=== PATIENT | female | born 1965 | race Caucasian/White ===

== ENCOUNTER 2016-10-11 10:19 | Emergency (ER) | payer OTHER ==
--- NOTE | 2016-10-11 15:22 | DIAGNOSTIC IMAGING REPORT ---
PROCEDURE: CT ABDOMEN/PELVIS W/O CONTRAST INDICATION: Left abdominal and flank pain. Vomiting. History of kidney stones and hysterectomy. TECHNIQUE: Noncontrast axial images with sagittal and coronal reformations. COMPARISON: Compared CT abdomen and pelvis on 11/24/2014. FINDINGS: ABDOMEN: Kidneys and ureters are normal. No evidence of urinary tract obstruction or calculus. Mild generalized fatty infiltration of the liver. Gallbladder, spleen, pancreas, and aorta are normal. Abdominal bowel pattern is normal. Appendix is not identified, no evidence of inflammatory process. Mild to moderate degenerate changes of the lumbar spine. There is a stable 8 mm nodule at the right medial lung base most compatible with old granuloma. PELVIS: Mild inflammatory changes in the upper sigmoid colon superimposed on moderate diverticulosis. Uterus and adnexal structures are normal. No evidence of free fluid. IMPRESSION: 1. Normal kidneys and ureters. No evidence of urinary tract calculus or obstruction. 2. Moderate fatty infiltration of the liver. 3. Mild inflammatory change of the upper sigmoid colon mesentery superimposed on moderate diverticulosis. Findings are compatible with diverticulitis. 4. There is an 8 mm lung nodule at the right medial lung base most compatible with old granuloma (stable since prior CT on 11/24/2014). 5. Findings discussed with Dr. Jasbir Robert. CT abdomen and pelvis. All CT scans at this facility use dose modulation, iterative reconstruction, and/or weight-based dosing when appropriate to reduce radiation dose to as low as reasonably achievable.
--- NOTE | 2016-10-11 16:39 | ED ORDER SUMMARY ---
..... Patient: SAUNDRA MOE OrderSheet [facility] VisitID: [id number] [place] [address] 51y, F Registration Date/Time: 10/11/2016 ORDER SHEET Weight: 76.2 kg (stated) Allergies: Codeine, Trazodone GENERAL ORDERS: UA-Culture if indicated Urgent (10:36 10/11/2016 JBoardley R.N. per protocol) (Ack 10:40 KHoerner) (10:40 KHoerner) CBC w Diff Urgent (10:46 10/11/2016 JBoardley R.N. per protocol) (10:49 KHoerner) CMP Urgent (10:46 10/11/2016 JBoardley R.N. per protocol) (10:49 KHoerner) Amylase Urgent (10:46 10/11/2016 JBoardley R.N. per protocol) (10:49 KHoerner) Lipase Urgent (10:46 10/11/2016 JBoardley R.N. per protocol) (10:49 KHoerner) CT Abd/Pel wo Cont (Left) Urgent (13:52 10/11/2016 Fidel Garcia) (Ack 13:57 KHoerner) (14:38 JBoardley R.N.) MEDICATION ORDERS: Flagyl PO 500 mg (NOW) (16:09 10/11/2016 Fidel Garcia) (Ack 16:13 JBoardley R.N.) (16:15 JBoardley R.N.) IV FLUIDS: Zofran IV 4 mg (NOW) (10:46 10/11/2016 JBoardley R.N. per protocol) (10:47 JBoardley R.N.) IV NS : initial bolus none -, then 1000 mL/hr for X1 (NOW); Routine (10:46 10/11/2016 JBoardley R.N. per protocol) (10:47 JBoardley R.N.) Zofran IV 4 mg (NOW) (13:13 10/11/2016 JBoardley R.N. per protocol) (13:14 JBoardley R.N.) Toradol IV 30 mg (NOW) (13:52 10/11/2016 Fidel Garcia) (Ack 13:53 Leon R.N.) (13:55 Leon R.N.) Levofloxacin IV 500 mg/100mL (NOW) (16:09 10/11/2016 Fidel Garcia) (Ack 16:13 Deodlebruce R.N.) (16:16 JBoardley R.N.) ORDER SHEET NOTES: [Electronically signed by Hal Lutz R.N. (18:27 10/11/2016)] [Electronically signed by Jasbir Robert Dr. (22:17 10/11/2016)] [Electronically locked/signed by Hal Lutz R.N. (18:27 10/11/2016)]
--- NOTE | 2016-10-11 16:39 | ED ORDER SUMMARY ---
..... Patient: SAUNDRA MOE OrderSheet [facility] VisitID: [id number] [place] [address] 51y, F Registration Date/Time: 10/11/2016 ORDER SHEET Weight: 76.2 kg (stated) Allergies: Codeine, Trazodone GENERAL ORDERS: UA-Culture if indicated Urgent (10:36 10/11/2016 JBoardley R.N. per protocol) (Ack 10:40 KHoerner) (10:40 KHoerner) CBC w Diff Urgent (10:46 10/11/2016 JBoardley R.N. per protocol) (10:49 KHoerner) CMP Urgent (10:46 10/11/2016 JBoardley R.N. per protocol) (10:49 KHoerner) Amylase Urgent (10:46 10/11/2016 JBoardley R.N. per protocol) (10:49 KHoerner) Lipase Urgent (10:46 10/11/2016 JBoardley R.N. per protocol) (10:49 KHoerner) CT Abd/Pel wo Cont (Left) Urgent (13:52 10/11/2016 Fidel Garcia) (Ack 13:57 KHoerner) (14:38 JBoardley R.N.) MEDICATION ORDERS: Flagyl PO 500 mg (NOW) (16:09 10/11/2016 Fidel Garcia) (Ack 16:13 JBoardley R.N.) (16:15 JBoardley R.N.) IV FLUIDS: Zofran IV 4 mg (NOW) (10:46 10/11/2016 JBoardley R.N. per protocol) (10:47 JBoardley R.N.) IV NS : initial bolus none -, then 1000 mL/hr for X1 (NOW); Routine (10:46 10/11/2016 JBoardley R.N. per protocol) (10:47 JBoardley R.N.) Zofran IV 4 mg (NOW) (13:13 10/11/2016 JBoardley R.N. per protocol) (13:14 JBoardley R.N.) Toradol IV 30 mg (NOW) (13:52 10/11/2016 Fidel Garcia) (Ack 13:53 Leon R.N.) (13:55 Leon R.N.) Levofloxacin IV 500 mg/100mL (NOW) (16:09 10/11/2016 Fidel Garcia) (Ack 16:13 Deodlebruce R.N.) (16:16 JBoardley R.N.) ORDER SHEET NOTES: [Electronically signed by Hal Lutz R.N. (18:27 10/11/2016)] [Electronically signed by Jasbir Robert Dr. (22:17 10/11/2016)] [Electronically locked/signed by Hal Lutz R.N. (18:27 10/11/2016)]
--- NOTE | 2016-10-11 16:39 | ED NURSING NOTES ---
Clinical Report - Nurses [facility] [address] [place] [address] 10/11/2016 10:21 Patient: SAUNDRA MOE TRIAGE Triage time 10:31. Acuity: LEVEL 3. Chief Complaint: ABDOMINAL PAIN, NAUSEA and VOMITING. 10:10/11/16. 10:10/11/16. Alert. SEPSIS SCREEN: Sepsis Screen. Negative (no infection suspected/documented). --10:36 Hal Lutz R.N. 10:10/11/16. BP: 135/70. HR: 88. RR: 17. O2 saturation: 99% on room air. Temp: 97.5 F (oral). Pain level now: 810. --10:36 Hal Lutz R.N. Weight: 76.2 kg stated. Height/Length: 62 inches Per Patient. BMI: 30.8. --10:32 Hal Lutz R.N. Medications ASA 81 mg, daily. Gemfibrozil Oral 600 mg, 2x a day. Lisinopril Oral 5 mg, daily. Metformin HCl Oral 100mg, 2x a day. --10:33 Hal Lutz R.N. Medication/allergy information source: the patient. --10:36 Hal Lutz R.N. Allergies Codeine. Trazodone . --10:33 Hal Lutz R.N. History Arrived by private vehicle. Historian: patient. Accompanied by friend. Primary physician (KALEE ARREDONDO). 10:31 10/11/16. ( 2 weeks ago). She has had nausea, vomiting and diarrhea. 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 PAST MEDICAL HX: Immunizations: up-to-date. The patient has had a hysterectomy. SOCIAL HX: Current every day light tobacco smoker (cigarette)- less than 1/2 a pack per day. Occasional alcohol use. No drug use. No recent travel. No infectious disease exposure. No known contact with a sick individual. ABUSE ASSESSMENT: No report of abuse. FALL RISK ASSESSMENT: Fall risk assessment completed. No fall risk identified. NUTRITIONAL RISK ASSESSMENT: The nutritional risk assessment revealed no deficiencies. FUNCTIONAL ASSESSMENT: Functional assessment: no impairments noted. LEARNING NEEDS ASSESSMENT: The learning needs assessment revealed no barriers. SKIN INTEGRITY ASSESSMENT: Skin integrity risk assessment completed. No skin integrity risk identified. --10:36 Hal Lutz R.N. PROBLEMS: Fatty Liver. Sleep Apnea. Hypertension. Diabetes Mellitus. --10:33 Hal Lutz R.N. Ovarian Cyst [RuleOut]. Nephrolithiasis [RuleOut]. --10:33 Hal Lutz R.N. ADDITIONAL SURGERIES: Hysterectomy. Tubal Ligation. --10:33 Hal Lutz R.N. Assessment 10:10/11/16. --10:36 Hal Lutz R.N. Interventions 10:10/11/16. 10:10/11/16. ID and allergy band on patient. To treatment room. --10:36 Hal Lutz R.N. PHYSICAL ASSESSMENT 10:10/11/16. Ambulatory to room. GENERAL / NEURO / PSYCH: Alert. Oriented X 4. Appears in pain. RESPIRATORY: Respirations not labored. CVS: Capillary refill less than 2 seconds. SKIN: Skin is warm and dry. --10:34 Hal Lutz R.N. NURSING PROGRESS NOTES 10:34 10/11/16. The plan of care for this patient has been created. Patient gowned. Head of bed elevated. Reassurance given. Two patient identifiers checked. Call light placed in reach. Side rails up x 2. Bed placed in lowest position. Brakes of bed on. --10:34 Hal Lutz R.N. 10:34 10/11/16. Patient ready for evaluation- chart flagged and notification provided. --10:34 Hal Lutz R.N. 10:47 10/11/2016 Site #1 started via IV in the left antecubital space with an 20g angiocath; one attempt. Blood drawn: rainbow set. Labeled in the presence of the patient and sent to the lab. Saline lock flushed with 10 mL saline. --10:47 Hal Lutz R.N. 10:47 10/11/2016 Started IV Fluids IV NS (Saline); at 1000 mL/hr over 1 hour(s) via site #1. Allergies verified and confirmed 5 rights. IV patency established. IV site checked: no pain, redness, or swelling. IV flushed thoroughly pre- and post-medication administration. Completed per protocol. --10:47 Hal Lutz R.N. 10:47 10/11/2016 Zofran (Ondansetron HCl) IVP 4 mg given over 2 minute(s) via site #1. Allergies verified and confirmed 5 rights. IV patency established. IV site checked: no pain, redness, or swelling. IV flushed thoroughly pre- and post-medication administration. IVP given by RN. --10:47 Hal Lutz R.N. Patient ID band checked for patient name and birthdate: patient confirmed. Instructions provided to collect clean catch urine and patient verbalized understanding. Clean catch urine collected with return of dorys-colored urine; sample sent to lab for urinalysis and culture. Specimen labeled in the presence of the patient. --10:55 Belkis Santos ER [facility] 11:30 10/11/2016 IV Fluids IV NS Discontinued: bag #1. Total amount infused: 1000 mL. IV patency established. IV site checked: no pain, redness, or swelling. IV flushed thoroughly. --11:40 Hal Lutz R.N. 11:40 10/11/16. --11:40 Hal Lutz R.N. 11:40 10/11/16. BP: 128/67. HR: 78. RR: 14. O2 saturation: 98% on room air. --11:40 Hal Lutz R.N. 11:40 10/11/16. Reassessment after medication administered. She has had no adverse reaction. Overall patient status is improved- she states feels better. --11:41 Hal Lutz R.N. 11:40 10/11/16. Pain level now: 08/05. --11:41 Hal Lutz R.N. 13:11 10/11/16. BP: 134/78. HR: 72. RR: 14. O2 saturation: 98% on room air. --13:11 Hal Lutz R.N. 13:11 10/11/16. GI / : The patient reports nausea. --13:11 Hal Lutz R.N. 13:14 10/11/2016 Zofran (Ondansetron HCl) IVP 4 mg given over 2 minute(s) via site #1. Allergies verified and confirmed 5 rights. IV patency established. IV site checked: no pain, redness, or swelling. IV flushed thoroughly pre- and post-medication administration. IVP given by RN. --13:14 Hal Lutz R.N. 13:14 10/11/16. Patient waiting for disposition. --13:14 Hal Lutz R.N. 13:14 10/11/16. Patient and family informed about reason for wait and about plan of care. --13:14 Hal Lutz R.N. 13:55 10/11/2016 Toradol IVP 30 mg given over 2 minute(s) via site #1. Allergies verified and confirmed 5 rights. IV patency established. IV site checked: no pain, redness, or swelling. IV flushed thoroughly pre- and post-medication administration. IVP given by RN. --13:55 Hal Lutz R.N. 13:56 10/11/16. Patient waiting for CT to be done. --13:56 Hal Lutz R.N. 15:03 10/11/16. ( CT completed). --15:03 Hal Lutz R.N. 15:10/11/16. BP: 125/74. HR: 80. RR: 14. O2 saturation: 99% on room air. Temp: 98.2 F (oral). --15:03 Hal Lutz R.N. 15:03 10/11/16. --15:03 Hal Lutz R.N. 15:03 10/11/16. Patient informed about reason for wait and about plan of care. Patient waiting for CT results. --15:03 Hal Lutz R.N. 15:03 10/11/16. Patient waiting for disposition. --15:03 Hal Lutz R.N. 15:45 10/11/16. Patient and family informed about reason for wait and about plan of care. --15:45 Hal Lutz R.N. 15:45 10/11/16. Patient waiting for disposition. --15:45 Hal Lutz R.N. 16:15 10/11/2016 Flagyl (MetroNIDAZOLE) PO 500 mg given. Allergies verified and confirmed 5 rights. --16:15 Hal Lutz R.N. 16:16 10/11/2016 Started 500 mg of Levofloxacin IVPB in bag #1 100 mL; at 100 mL/hr over 1 hour(s) via site #1; Allergies verified and confirmed 5 rights. IV patency established. IV site checked: no pain, redness, or swelling. IV flushed thoroughly pre- and post-medication administration. Completed per protocol. --16:16 Hal Lutz R.N. 17:03 10/11/2016 Levofloxacin IVPB Discontinued: infused upon discharge. Total amount infused: 100 mL. IV patency established. IV site checked: no pain, redness, or swelling. IV flushed thoroughly. --17:03 Hal Lutz R.N. DISPOSITION / DISCHARGE 17:03 10/11/2016 Site #1 removed upon discharge. Catheter intact. --17:03 Hal Lutz R.N. 17:03 10/11/16. Condition at departure: improved. The goals identified in the patient's plan of care were met. No learning barriers present. Discharge instructions provided and reviewed with the patient. Reviewed warnings. Reviewed medication(s). Treatments reviewed. Patient verbalized understanding. Written instructions provided in [place]. The patient was discharged by the physician. She was discharged home and accompanied by family. She left the Emergency Department ambulatory and via private vehicle. Family member driving. FALL RISK ASSESSMENT: Fall risk assessment completed. No fall risk identified. --17:03 Hal Lutz R.N. 17:03 10/11/16. BP: 121/71. HR: 81. RR: 14. O2 saturation: 99% on room air. Temp: 98.3 F (oral). Pain level now: 07/08. --17:03 Hal Lutz R.N. 17:04 10/11/16. Departure time: 17:04. --17:04 Hal Lutz R.N. Locked/Released at 10/11/2016 18:27 by Hal Lutz R.N.
--- NOTE | 2016-10-11 16:39 | ED CLINICAL REPORT ---
Clinical Report - Physicians/Mid Levels [facility] [address] [place] [address] 10/11/2016 10:21 Patient: SAUNDRA MOE Time Seen: 10:25; initial patient contact. Arrived- By private vehicle. Historian- patient. HISTORY OF PRESENT ILLNESS Chief Complaint: ABDOMINAL PAIN. At its maximum, severity described as moderate. When seen in the E.D., severity described as moderate. Modifying factors- worsened by food. Not relieved by anything. It is described as "pain" and it is described as located in the left lower quadrant. This started about 2 months ago. The patient has had nausea, loss of appetite and vomiting. She has had mild loose stools. Similar symptoms previously: None. Recent medical care: Not recently seen/assessed. REVIEW OF SYSTEMS No constipation, black stools, difficulty with urination, pain with urination or urinary frequency. No fever or chills. All systems otherwise negative, except as recorded above. PAST HISTORY PROBLEMS: Fatty Liver. Sleep Apnea. Hypertension. Diabetes Mellitus. Ovarian Cyst Nephrolithiasis SURGERIES: Hysterectomy. Tubal Ligation. SOCIAL HISTORY Current every day smoker. Occasional alcohol use. No drug use. ADDITIONAL NOTES The nursing notes have been reviewed. PHYSICAL EXAM Vital Signs: 10/11/2016 10:31 BP: 135/70. HR: 88. RR: 17. O2 saturation: 99%. Temp: 97.5 F. Pain level now: 8/10. Have been reviewed as normal. Appearance: Alert. Oriented X3. No acute distress. Eyes: Eyes normal inspection. ENT: Dry mucous membranes present. CVS: Normal heart rate and rhythm. Heart sounds normal. Respiratory: No respiratory distress. Breath sounds normal. Abdomen: Soft. Moderate tenderness in the left lower quadrant with guarding present. No rebound tenderness. Bowel sounds normal. No organomegaly. No mass. Back: Normal inspection. No CVA tenderness. Skin: Skin warm and dry. Normal skin color. No rash. Extremities: No lower extremity edema. Neuro: Oriented X 3. LABS, X-RAYS, AND EKG Abdominal CT: 1. Normal kidneys and ureters. No evidence of urinary tract calculus or obstruction. 2. Moderate fatty infiltration of the liver. 3. Mild inflammatory change of the upper sigmoid colon mesentery superimposed on moderate diverticulosis. Findings are compatible with diverticulitis. 4. There is an 8 mm lung nodule at the right medial lung base most compatible with old granuloma (stable since prior CT on 11/24/2014). Study type: abdomen and pelvis. Abdominal CT performed without contrast. Prior studies were not available for comparison. Laboratory Tests: UA-Culture if indicated: (MANNY: 10/11/2016 10:30) ( [facility] [place] 10/11/2016 10:52) Final results Test Result Flag Units (Reference) URINE COLOR YELLOW URINE APPEARANCE CLEAR URINE GLUCOSE NEGATIVE (NEGATIVE) URINE BILIRUBIN NEGATIVE (NEGATIVE) URINE KETONE TRACE (NEGATIVE) URINE SPECIFIC GRAVITY 1.010 (1.010-1.030) URINE PH 6.0 (5.0-8.0) URINE PROTEIN 1+ (NEGATIVE) URINE UROBILINOGEN 0.2 EU/dL (0.2-1.0) URINE NITRITE NEGATIVE (NEGATIVE) URINE BLOOD 1+ (NEGATIVE) URINE LEUK ESTERASE NEGATIVE (NEGATIVE) URINE RBC RARE rbc/hpf (0-1) URINE WBC 0-1 wbc/hpf (0-1) URINE EPITHELIAL CELLS 1-3 EPI/hpf (0-5) URINE BACTERIA TRACE (<1+) (NONE SEEN) URINE COMMENT CULT NOT INDICATED URINE CULTURES ARE SET-UP BASED ON THE FOLLOWING CRITERIA:POSITIVE NITRITEPOSITIVE LEUKOCYTE ESTERASEGREATER THAN 10 WHITE BLOOD CELLSMODERATE (2+) OR GREATER BACTERIA CBC w Diff: (MANNY: 10/11/2016 10:45) ( [facility] [place] 10/11/2016 10:54) Final results Test Result Flag Units (Reference) WHITE BLOOD COUNT 7.1 K/uL (4.5-11.5) RED BLOOD COUNT 4.29 M/uL (4.00-5.20) HEMOGLOBIN 14.9 gm/dL (12.0-16.0) HEMATOCRIT 43.3 % (36.0-46.0) MEAN CELL VOLUME 101 H fL (80-100) MEAN CORPUSCULAR HGB 35 H pg (26-34) MEAN CORPUSCULAR HGB CONC 34 g/dL (31-37) RED CELL DISTRIBUTION WIDTH 13.1 % (11.6-14.8) PLATELET COUNT 159 K/uL (150-400) NEUTROPHIL % 63.9 % (50-75) LYMPH % 26.2 % (25-40) MONO % 8.5 % (3-14) EOSINOPHIL % 1.0 % (0-4) BASOPHIL % 0.4 % (0-2) CMP: (MANNY: 10/11/2016 10:45) ( MsgRcvd 10/11/2016 11:17) Final results Test Result Flag Units (Reference) GLUCOSE 102 mg/dL (70-110) BUN 8 mg/dL (7-18) CREATININE 0.6 mg/dL (0.6-1.3) Estimated GFR >60 mL/min Estimated GFR- >60 mL/min Note: Persistent reduction over 3 months in eGFR<60 mL/min/1.73 m2 defines CKD. Patients with eGFR values>=60 mL/min/1.73 m2 may also have CKD if evidence ofpersistent proteinuria. Additional information may be foundat www.kidney.org. SODIUM 138 mmol/L (136-145) POTASSIUM 3.3 L mmol/L (3.5-5.1) CHLORIDE 97 L mmol/L (98-107) CARBON DIOXIDE 22 mmol/L (21-32) CALCIUM 9.0 mg/dL (8.5-10.1) TOTAL PROTEIN 7.9 g/dL (6.4-8.2) ALBUMIN 4.1 g/dL (3.3-5.0) BILIRUBIN, TOTAL 1.0 mg/dL (0.0-1.0) ALKALINE PHOSPHATASE 83 U/L (46-116) AST (SGOT) 259 H U/L (15-37) ALT (SGPT) 274 H U/L (12-78) LIPASE 317 U/L (73-393) AMYLASE 83 U/L (25-115) . PROGRESS AND PROCEDURES Disposition: Discharged home in good and improved condition. Condition: good. CLINICAL IMPRESSION Acute diverticulitis of the colon. No perforation, bleeding, abscess, peritonitis or obstruction. Abnormal liver function test: AST/SGOT and ALT/SGPT. INSTRUCTIONS Your Current Medications: CONTINUE TAKING THE FOLLOWING MEDICATIONS: ASA : 81 mg daily. Gemfibrozil Oral : 600 mg 2x a day. Lisinopril Oral : 5 mg daily. Metformin HCl Oral : 100mg 2x a day. Prescription Medications: Zofran (orally disintegrating tablets) 4 mg: take 1 orally every 6 hours as needed for nausea and vomiting. Dispense ten (10). No refill. Substitution is permissible. Cipro 500 mg: take 1 tab orally every 12 hours for 7 days. No refills. Substitution is permissible. Demerol 50 mg: take 1 tablet orally every 6 hours as needed for pain. Dispense fifteen (15). No refills. Substitution is permissible. Flagyl 500 mg: Take 1 tablet orally every 8 hours for 7 days. No refill. Substitution is permissible Follow-up: Follow up with your doctor in about two days. Call for an appointment. Blood pressure screening was not performed during this visit because the patient has an active diagnosis of hypertension. (Electronically signed by Jasbir Robert Dr. 10/11/2016 22:17)
--- NOTE | 2016-10-11 22:17 | ED DISCHARGE INSTRUCTIONS ---
Patient: SAUNDRA MOE General Instructions [facility] VisitID: [id number] [place] [address] 51y, F Registration Date/Time: 10/11/2016 Acute diverticulitis of the colon. No perforation, bleeding, abscess, peritonitis or obstruction. Abnormal liver function test: AST/SGOT and ALT/SGPT. INSTRUCTIONS Your Current Medications: CONTINUE TAKING THE FOLLOWING MEDICATIONS: ASA : 81 mg daily. Gemfibrozil Oral : 600 mg 2x a day. Lisinopril Oral : 5 mg daily. Metformin HCl Oral : 100mg 2x a day. Prescription Medications: Zofran (orally disintegrating tablets) 4 mg: take 1 orally every 6 hours as needed for nausea and vomiting. Dispense ten (10). No refill. Substitution is permissible. Cipro 500 mg: take 1 tab orally every 12 hours for 7 days. No refills. Substitution is permissible. Demerol 50 mg: take 1 tablet orally every 6 hours as needed for pain. Dispense fifteen (15). No refills. Substitution is permissible. Flagyl 500 mg: Take 1 tablet orally every 8 hours for 7 days. No refill. Substitution is permissible Follow-up: Follow up with your doctor in about two days. Call for an appointment. Blood pressure screening was not performed during this visit because the patient has an active diagnosis of hypertension. ADDITIONAL INFORMATION Diverticulitis Some people develop pouches along the wall of the colon as they get older. The pouches,called diverticuli, usually cause no symptoms. If the pouches become blocked, an infection may occur known as diverticulitis. This causes lower abdominal pain and fever. If not treated, it can become a serious condition, causing an abscess to form inside the pouch. The abscess may block the instestinal tract even or rupture, spreading infection throughout the abdomen. When treatment is started early, oral antibiotics alone may be enough to cure diverticulitis. This method is tried first. However, if you do not improve or if your condition worsens while you are trying oral antibiotics, it will be necessary to admit you to the hospital for IV antibiotics. Severe cases may require surgery. Home care The following guidelines will help you care for your diverticulitis at home: During the acute illness, rest and follow a low-fiber diet: Foods to Include: flake cereal, mashed potatoes, pancakes, waffles, pasta, white bread, rice, applesauce, bananas, eggs, meat, fish, poultry, tofu, cooked vegetables. Take antibiotics exactly as directed. Do not miss any doses or stop taking the medication, even if you feel better. Monitor your temperature and report any rising temperature to your doctor. Preventing future attacks Once you have had an episode of diverticulitis, you are at risk of having a recurrence. After you have recovered from this episode, you may be able to reduce your risk by eating a high-fiber diet (2035 gm/day of fiber). This cleans out the colon pouches that already exist and prevent new ones from forming. Foods high in fiber includes fresh fruits and edible peelings, raw or lightly cooked vegetables, whole grain cereals and breads, dried beans and peas, bran. Follow-up care Follow up with your doctor as advised or sooner if you are not improving in the nexttwo days. When to seek medical care Get prompt medical attention if any of the following occur: Fever of 100.4F (38C) or higher, or as directed by your health care provider Repeated vomiting or swelling of the abdomen Weakness, dizziness, light-headedness Increasing abdominal pain that becomes severe or spreads to your back Pain that moves to the right lower abdomen Rectal bleeding (red, black or maroon color of the stools) Unexpected vaginal bleeding Ondansetron Oral disintegrating tablet What is this medicine? ONDANSETRON (on HAN se annamaria) is used to treat nausea and vomiting caused by chemotherapy. It is also used to prevent or treat nausea and vomiting after surgery. How should I use this medicine? These tablets are made to dissolve in the mouth. Do not try to push the tablet through the foil backing. With dry hands, peel away the foil backing and gently remove the tablet. Place the tablet in the mouth and allow it to dissolve, then swallow. While you may take these tablets with water, it is not necessary to do so. Talk to your turret lathe tender regarding the use of this medicine in children. Special care may be needed. What side effects may I notice from receiving this medicine? Side effects that you should report to your doctor or health children's zoo caretaker as soon as possible: allergic reactions like skin rash, itching or hives, swelling of the face, lips, or tongue breathing problems dizziness fast or irregular heartbeat feeling faint or lightheaded, falls fever and chills swelling of the hands and feet tightness in the chest Side effects that usually do not require medical attention (report to your doctor or health children's zoo caretaker if they continue or are bothersome): constipation or diarrhea headache What may interact with this medicine? Do not take this medicine with any of the following medications: -apomorphine -cisapride -dofetilide -dronedarone -pimozide -thioridazine -ziprasidone This medicine may also interact with the following medications: -carbamazepine -phenytoin -rifampicin -tramadol -other medicines that prolong the QT interval (cause an abnormal heart rhythm) What if I miss a dose? If you miss a dose, take it as soon as you can. If it is almost time for your next dose, take only that dose. Do not take double or extra doses. Where should I keep my medicine? Keep out of the reach of children. Store between 2 and 30 degrees C (36 and 86 degrees F). Throw away any unused medicine after the expiration date. What should I tell my health care provider before I take this medicine? They need to know if you have any of these conditions: heart disease history of irregular heartbeat liver disease low levels of magnesium or potassium in the blood an unusual or allergic reaction to ondansetron, granisetron, other medicines, foods, dyes, or preservatives or trying to get breast-feeding What should I watch for while using this medicine? Check with your doctor or health children's zoo caretaker as soon as you can if you have any sign of an allergic reaction. Ciprofloxacin Hydrochloride Oral tablet What is this medicine? CIPROFLOXACIN (sip shelly FLOX a sin) is a quinolone antibiotic. It is used to treat certain kinds of bacterial infections. It will not work for colds, flu, or other viral infections. How should I use this medicine? Take this medicine by mouth with a glass of water. Follow the directions on the prescription label. Take your medicine at regular intervals. Do not take your medicine more often than directed. Take all of your medicine as directed even if you think your are better. Do not skip doses or stop your medicine early. You can take this medicine with food or on an empty stomach. It can be taken with a meal that contains dairy or calcium, but do not take it alone with a dairy product, like milk or yogurt or calcium-fortified juice. A special MedGuide will be given to you by the pharmacist with each prescription and refill. Be sure to read this information carefully each time. Talk to your turret lathe tender regarding the use of this medicine in children. Special care may be needed. What side effects may I notice from receiving this medicine? Side effects that you should report to your doctor or health children's zoo caretaker as soon as possible: - allergic reactions like skin rash, itching or hives, swelling of the face, lips, or tongue - breathing problems - confusion, nightmares or hallucinations - feeling faint or lightheaded, falls - irregular heartbeat - joint, muscle or tendon pain or swelling - pain or trouble passing urine -persistent headache with or without blurred vision - redness, blistering, peeling or loosening of the skin, including inside the mouth - seizure - unusual pain, numbness, tingling, or weakness Side effects that usually do not require medical attention (report to your doctor or health children's zoo caretaker if they continue or are bothersome): - diarrhea - nausea or stomach upset - white patches or sores in the mouth What may interact with this medicine? Do not take this medicine with any of the following medications: cisapride droperidol terfenadine tizanidine This medicine may also interact with the following medications: antacids caffeine cyclosporin didanosine (ddI) buffered tablets or powder medicines for diabetes medicines for inflammation like ibuprofen, naproxen methotrexate multivitamins omeprazole phenytoin probenecid sucralfate theophylline warfarin What if I miss a dose? If you miss a dose, take it as soon as you can. If it is almost time for your next dose, take only that dose. Do not take double or extra doses. Where should I keep my medicine? Keep out of the reach of children. Store at room temperature below 30 degrees C (86 degrees F). Keep container tightly closed. Throw away any unused medicine after the expiration date. What should I tell my health care provider before I take this medicine? They need to know if you have any of these conditions: -bone problems -cerebral disease -joint problems -irregular heartbeat -kidney disease -liver disease -myasthenia gravis -seizure disorder -tendon problems -an unusual or allergic reaction to ciprofloxacin, other antibiotics or medicines, foods, dyes, or preservatives - or trying to get -breast-feeding What should I watch for while using this medicine? Tell your doctor or health children's zoo caretaker if your symptoms do not improve. Do not treat diarrhea with over the counter products. Contact your doctor if you have diarrhea that lasts more than 2 days or if it is severe and watery. You may get drowsy or dizzy. Do not drive, use machinery, or do anything that needs mental alertness until you know how this medicine affects you. Do not stand or sit up quickly, especially if you are an older patient. This reduces the risk of dizzy or fainting spells. This medicine can make you more sensitive to the sun. Keep out of the sun. If you cannot avoid being in the sun, wear protective clothing and use sunscreen. Do not use sun lamps or tanning beds/booths. Avoid antacids, aluminum, calcium, iron, magnesium, and zinc products for 6 hours before and 2 hours after taking a dose of this medicine. Drug Abuse: Prescribed Narcotics& Sedatives Prolonged or overuse of drugs prescribed for pain or sedation may lead to addictionor dependence. Physical dependence leads to drug withdrawal symptoms if you stop taking the drug. With psychological dependence you feel a strong craving for the drug. You may be unable to stop using the drug even though you want to stop. These problems can occur even when the medication is taken at the prescribed dose. Drug addiction places you, your family, and your job at risk. Arrest, conviction and alf sentencing are possible. There is increased danger of accidental injuries to yourself or others while you are under the influence of the drug. from an unintentional overdose of the drug is one of the greatest risks you face. Get Care Admit you have a drug problem to yourself and your family and close friends. Tell your prescribing doctors about this problem so they can help you by adjusting the type and amount of medications that are prescribed in the future. It is best to receive all prescriptions for addictive medications from a single physician who can monitor what is being prescribed. Ask your doctor for a referral for professional help. This could be individual psychotherapy or counseling or a drug treatment program (outpatient or residential). Join a self-help group for drug abuse. Avoid friends who abuse drugs themselves or tempt you to continue abusing drugs. Do not combine pain medicines and sedatives together or with alcohol. Doing so can cause oversedation, coma, and stop your breathing. Follow Up with your doctor or as advised by our staff. Contact one of the resources below for help. National [employer] on Alcoholism and Drug Dependencewww.ncadd.org Narcotics Anonymouswww.na.org National Alcohol and Substance Abuse Information Center (for referral to treatment programs) 153.392.5595 www.addictioncareoptions.com Get Prompt Medical Attention if any of the following occur: Excess drowsiness Slow breathing (under 8 breaths per minute) Agitation, anxiety, unable to sleep Unintended weight loss Seizure Chest pain or shortness of breath Fever of 100.4F (38C) or higher, or as directed by your healthcare provider Cough with colored sputum Metronidazole Oral tablet What is this medicine? METRONIDAZOLE (me troe NI da zole) is an antiinfective. It is used to treat certain kinds of bacterial and protozoal infections. It will not work for colds, flu, or other viral infections. How should I use this medicine? Take this medicine by mouth with a full glass of water. Follow the directions on the prescription label. Take your medicine at regular intervals. Do not take your medicine more often than directed. Take all of your medicine as directed even if you think you are better. Do not skip doses or stop your medicine early. Talk to your turret lathe tender regarding the use of this medicine in children. Special care may be needed. What side effects may I notice from receiving this medicine? Side effects that you should report to your doctor or health children's zoo caretaker as soon as possible: allergic reactions like skin rash or hives, swelling of the face, lips, or tongue confusion, clumsiness difficulty speaking discolored or sore mouth dizziness fever, infection numbness, tingling, pain or weakness in the hands or feet trouble passing urine or change in the amount of urine redness, blistering, peeling or loosening of the skin, including inside the mouth seizures unusually weak or tired vaginal irritation, dryness, or discharge Side effects that usually do not require medical attention (report to your doctor or health children's zoo caretaker if they continue or are bothersome): diarrhea headache irritability metallic taste nausea stomach pain or cramps trouble sleeping What may interact with this medicine? Do not take this medicine with any of the following medications: alcohol or any product that contains alcohol amprenavir oral solution cisapride disulfiram dofetilide dronedarone paclitaxel injection pimozide ritonavir oral solution sertraline oral solution sulfamethoxazole-trimethoprim injection thioridazine ziprasidone This medicine may also interact with the following medications: cimetidine lithium other medicines that prolong the QT interval (cause an abnormal heart rhythm) phenobarbital phenytoin warfarin What if I miss a dose? If you miss a dose, take it as soon as you can. If it is almost time for your next dose, take only that dose. Do not take double or extra doses. Where should I keep my medicine? Keep out of the reach of children. Store at room temperature below 25 degrees C (77 degrees F). Protect from light. Keep container tightly closed. Throw away any unused medicine after the expiration date. What should I tell my health care provider before I take this medicine? They need to know if you have any of these conditions: anemia or other blood disorders disease of the nervous system fungal or yeast infection if you drink alcohol containing drinks liver disease seizures an unusual or allergic reaction to metronidazole, or other medicines, foods, dyes, or preservatives or trying to get breast-feeding What should I watch for while using this medicine? Tell your doctor or health children's zoo caretaker if your symptoms do not improve or if they get worse. You may get drowsy or dizzy. Do not drive, use machinery, or do anything that needs mental alertness until you know how this medicine affects you. Do not stand or sit up quickly, especially if you are an older patient. This reduces the risk of dizzy or fainting spells. Avoid alcoholic drinks while you are taking this medicine and for three days afterward. Alcohol may make you feel dizzy, sick, or flushed. If you are being treated for a sexually transmitted disease, avoid sexual contact until you have finished your treatment. Your sexual partner may also need treatment. You have been given the following additional information: Diverticulitis Ondansetron Oral disintegrating tablet Ciprofloxacin Hydrochloride Oral tablet Drug Abuse: Prescribed Narcotics And Sedatives Metronidazole Oral tablet (Electronically signed by Jasbir Robert Dr. 10/11/2016 22:17)
--- NOTE | 2016-10-11 22:17 | ED MAR SUMMARY ---
..... Medication Administration Record [facility] [address] [place] [address] Patient: SAUNDRA MOE Visit ID: [id number] 51y, F Weight: 76.2 kg Height/Length: 62 in BMI: 30.8 ALLERGIES: Codeine, Trazodone Start 10:47 10/11/2016 Hal Lutz R.N., Stop 11:30 10/11/2016 Hal Lutz R.N. Medication Administered: IV NS (SALINE), Dose: IV Fluids over 1 hour(s), Rate: 1000 mL/hr, Site: #1 left AC. Medication Ordered: IV NS : initial bolus none -, then 1000 mL/hr for X1 (NOW); Routine. Given 10:47 10/11/2016 Hal Lutz R.N. Medication Administered: ZOFRAN [IVP] (ONDANSETRON HCL), Dose: 4 mg IVP over 2 minute(s), Site: #1 left AC. Medication Ordered: Zofran IV 4 mg (NOW). Given 13:14 10/11/2016 Hal Lutz R.N. Medication Administered: ZOFRAN [IVP] (ONDANSETRON HCL), Dose: 4 mg IVP over 2 minute(s), Site: #1 left AC. Medication Ordered: Zofran IV 4 mg (NOW). Given 13:55 10/11/2016 Hal Lutz R.N. Medication Administered: TORADOL [IVP], Dose: 30 mg IVP over 2 minute(s), Site: #1 left AC. Medication Ordered: Toradol IV 30 mg (NOW). Given 16:15 10/11/2016 Hal Lutz R.N. Medication Administered: FLAGYL [PO] (METRONIDAZOLE), Dose: 500 mg PO. Medication Ordered: Flagyl PO 500 mg (NOW). Start 16:16 10/11/2016 Hal Lutz R.N., Stop 17:03 10/11/2016 Hal Lutz R.N. Medication Administered: LEVOFLOXACIN [IVPB], Dose: 500 mg IVPB over 1 hour(s), Rate: 100 mL/hr, Dispensed: 100 mL bag, Site: #1 left AC. Medication Ordered: Levofloxacin IV 500 mg/100mL (NOW).
--- NOTE | 2016-10-11 22:17 | ED MAR SUMMARY ---
..... Medication Administration Record [facility] [address] [place] [address] Patient: SAUNDRA MOE Visit ID: [id number] 51y, F Weight: 76.2 kg Height/Length: 62 in BMI: 30.8 ALLERGIES: Codeine, Trazodone Start 10:47 10/11/2016 Hal Lutz R.N., Stop 11:30 10/11/2016 Hal Lutz R.N. Medication Administered: IV NS (SALINE), Dose: IV Fluids over 1 hour(s), Rate: 1000 mL/hr, Site: #1 left AC. Medication Ordered: IV NS : initial bolus none -, then 1000 mL/hr for X1 (NOW); Routine. Given 10:47 10/11/2016 Hal Lutz R.N. Medication Administered: ZOFRAN [IVP] (ONDANSETRON HCL), Dose: 4 mg IVP over 2 minute(s), Site: #1 left AC. Medication Ordered: Zofran IV 4 mg (NOW). Given 13:14 10/11/2016 Hal Lutz R.N. Medication Administered: ZOFRAN [IVP] (ONDANSETRON HCL), Dose: 4 mg IVP over 2 minute(s), Site: #1 left AC. Medication Ordered: Zofran IV 4 mg (NOW). Given 13:55 10/11/2016 Hal Lutz R.N. Medication Administered: TORADOL [IVP], Dose: 30 mg IVP over 2 minute(s), Site: #1 left AC. Medication Ordered: Toradol IV 30 mg (NOW). Given 16:15 10/11/2016 Hal Lutz R.N. Medication Administered: FLAGYL [PO] (METRONIDAZOLE), Dose: 500 mg PO. Medication Ordered: Flagyl PO 500 mg (NOW). Start 16:16 10/11/2016 Hal Lutz R.N., Stop 17:03 10/11/2016 Hal Lutz R.N. Medication Administered: LEVOFLOXACIN [IVPB], Dose: 500 mg IVPB over 1 hour(s), Rate: 100 mL/hr, Dispensed: 100 mL bag, Site: #1 left AC. Medication Ordered: Levofloxacin IV 500 mg/100mL (NOW).
--- NOTE | 2016-10-11 22:17 | ED MED RECONCILIATION SUMMARY ---
Patient: SAUNDRA MOE Medication Reconciliation Report [facility] VisitID: [id number] [address] [place] [address] 51y, F Registration Date/Time: 10/11/2016 Weight: 76.2 kg Height/Length: 62 in. BMI: 30.8 ALLERGIES: Codeine, Trazodone The patient's Home Medications are listed below: CONTINUE TAKING THE FOLLOWING MEDICATIONS: ASA 81 mg, daily Gemfibrozil Oral 600 mg, 2x a day Lisinopril Oral 5 mg, daily Metformin HCl Oral 100mg, 2x a day The source(s) of the original Home Medication information: patient The following Medications were given to the patient in the Emergency Department: IV NS IV Fluids bolus 0, then 1000 mL/hr, administered: 10/11/2016 10:47:00 AM Zofran [IVP] IVP 4 mg, administered: 10/11/2016 10:47:00 AM Zofran [IVP] IVP 4 mg, administered: 10/11/2016 1:14:00 PM Toradol [IVP] IVP 30 mg, administered: 10/11/2016 1:55:00 PM Flagyl [PO] PO 500 mg, administered: 10/11/2016 4:15:00 PM Levofloxacin [IVPB] IVPB bolus 0, then 500 mg 100 mL/hr, administered: 10/11/2016 4:16:00 PM The following Medications were prescribed to the patient: Zofran (orally disintegrating tablets) 4 mg: take 1 orally every 6 hours as needed for nausea and vomiting. Dispense ten (10). No refill. Substitution is permissible. -- Jasbir Robert Dr. Cipro 500 mg: take 1 tab orally every 12 hours for 7 days. No refills. Substitution is permissible. -- Jasbir Robert Dr. Demerol 50 mg: take 1 tablet orally every 6 hours as needed for pain. Dispense fifteen (15). No refills. Substitution is permissible. -- Jasbir Robert Dr. Flagyl 500 mg: Take 1 tablet orally every 8 hours for 7 days. No refill. Substitution is permissible -- Jasbir Robert Dr.
--- NOTE | 2016-10-11 22:17 | ED MED RECONCILIATION SUMMARY ---
Patient: SAUNDRA MOE Medication Reconciliation Report [facility] VisitID: [id number] [address] [place] [address] 51y, F Registration Date/Time: 10/11/2016 Weight: 76.2 kg Height/Length: 62 in. BMI: 30.8 ALLERGIES: Codeine, Trazodone The patient's Home Medications are listed below: CONTINUE TAKING THE FOLLOWING MEDICATIONS: ASA 81 mg, daily Gemfibrozil Oral 600 mg, 2x a day Lisinopril Oral 5 mg, daily Metformin HCl Oral 100mg, 2x a day The source(s) of the original Home Medication information: patient The following Medications were given to the patient in the Emergency Department: IV NS IV Fluids bolus 0, then 1000 mL/hr, administered: 10/11/2016 10:47:00 AM Zofran [IVP] IVP 4 mg, administered: 10/11/2016 10:47:00 AM Zofran [IVP] IVP 4 mg, administered: 10/11/2016 1:14:00 PM Toradol [IVP] IVP 30 mg, administered: 10/11/2016 1:55:00 PM Flagyl [PO] PO 500 mg, administered: 10/11/2016 4:15:00 PM Levofloxacin [IVPB] IVPB bolus 0, then 500 mg 100 mL/hr, administered: 10/11/2016 4:16:00 PM The following Medications were prescribed to the patient: Zofran (orally disintegrating tablets) 4 mg: take 1 orally every 6 hours as needed for nausea and vomiting. Dispense ten (10). No refill. Substitution is permissible. -- Jasbir Robert Dr. Cipro 500 mg: take 1 tab orally every 12 hours for 7 days. No refills. Substitution is permissible. -- Jasbir Robert Dr. Demerol 50 mg: take 1 tablet orally every 6 hours as needed for pain. Dispense fifteen (15). No refills. Substitution is permissible. -- Jasbir Robert Dr. Flagyl 500 mg: Take 1 tablet orally every 8 hours for 7 days. No refill. Substitution is permissible -- Jasbir Robert Dr.
== END 2016-10-11 17:04 | disposition home or self-care (01) ==
LOC: ED SRH 10:19
DX: K57.32 Diverticulitis of large intestine without perforation or abscess without bleeding (principal); R94.5 Abnormal results of liver function studies; E11.9 Type 2 diabetes mellitus without complications; I10 Essential (primary) hypertension; F17.200 Nicotine dependence, unspecified, uncomplicated
CPT/HCPCS: 90004; 90100; 92235; 92530; 95059